=== PATIENT | female | born 1950 | race Caucasian/White ===

== ENCOUNTER 2020-07-01 14:09 | Outpatient (CLI) | payer MEDICARE, OTHER, SELFPAY ==
--- NOTE | 2020-07-01 14:22 | MM_ITS ---
WS: [id number] SCREENING DIGITAL MAMMOGRAM WITH CAD HISTORY: SCREENING COMPARISON: 06/26/2018 and 09/08/2009 Bilateral CC and MLO views submitted. Computer aided detection analyzed. Breast composition: There are scattered areas of fibroglandular density. High density asymmetry posterior to the RIGHT nipple. Asymmetry measures 2.8 x 0.9 cm. Suspect there may be a lobulated mass just lateral to the nipple on the CC view. Additional imaging is warranted. O therwise asymmetries are stable. MM/[place] [id number] IMPRESSION: BI-RADS: 0-Incomplete: Need additional imaging evaluation FOLLOW UP: Need Additional Imaging RIGHT breast: Spot compression views (CC and MLO). True ML. Ultrasound to follo w if abnormality persists.
== END 2020-07-01 14:10 | disposition home or self-care (01) ==
LOC: RADSHAW 14:16
PROVIDERS: PCP Internal Medicine; Visit Provider Internal Medicine
DX: Z12.31 Encounter for screening mammogram for malignant neoplasm of breast (principal); N64.89 Other specified disorders of breast
CPT/HCPCS: 77067

== ENCOUNTER 2020-07-08 09:00 | Outpatient (CLI) | payer MEDICARE, OTHER, SELFPAY ==
--- NOTE | 2020-07-08 10:19 | XR_ITS ---
WS: [id number] ABDOMEN 1 VIEW(S) HISTORY: CONSTIPATION COMPARISON: None available. Moderate increased fecal retention in the RIGHT colon. Otherwise the bowel gas pattern is normal. No mass or calcification. No suspicious calcifications or masses. No bone abnormality. Surgical clips in the pelvis bilaterally. XR/XR KUB [id number] IMPRESSION: Moderate fecal retention RIGHT colon. No obstructive pattern.
== END 2020-07-08 09:01 | disposition home or self-care (01) ==
LOC: RADWPI 09:06
PROVIDERS: PCP Internal Medicine; Visit Provider Internal Medicine
DX: K59.00 Constipation, unspecified (principal)
CPT/HCPCS: 74018

== ENCOUNTER 2020-07-14 12:47 | Outpatient (CLI) | payer MEDICARE, OTHER, SELFPAY ==
--- NOTE | 2020-07-14 12:58 | US_ITS ---
WS: [id number] ADDITIONAL VIEWS RIGHT BREAST RIGHT breast ultrasound, limited HISTORY: RIGHT breast asymmetry. COMPARISON: None available. Compression views right CC and MLO projection. True ML also submitted. Asymmetry measuring 9 mm persists in the anterior RIGHT breast near 9:00. No calcifications. Ultrasou nd to be performed. RIGHT breast ultrasound. Ultrasound is directed posterior to the nipple and to the 9:00 axis. There is an irregular fluid iain ection measuring 1.0 x 0.9 x 0.5 cm in the RIGHT breast 2 cm from the nipple. Corresponds to size and location with the mammographic abnormality. This is probably a small amount of fluid in the duct or cyst conforming to the planes of the breasts. US/US breast RT limited* [id number] IMPRESSION: BI-RADS: 2-Benign FOLLOW-UP: 1 Year Follow-up
== END 2020-07-14 12:48 | disposition home or self-care (01) ==
LOC: RADSHAW 12:50
PROVIDERS: PCP Internal Medicine; Visit Provider Internal Medicine
DX: R92.8 Other abnormal and inconclusive findings on diagnostic imaging of breast (principal); N64.89 Other specified disorders of breast
CPT/HCPCS: 76642; 77065

== ENCOUNTER 2020-07-22 12:26 | Outpatient (CLI) | payer MEDICARE, OTHER, SELFPAY ==
--- NOTE | 2020-07-22 12:31 | CT_ITS ---
WS: [id number] CT ABDOMEN AND PELVIS WITH CONTRAST HISTORY: LEFT LOWER QUADRANT ABDOMINAL PAIN TECHNIQUE: Imaging performed of the abdomen and pelvis with IV contrast. Single phase imaging of the abdomen. Coronal and sagittal reformats are submitted. All CT scans at [facility] use at least one of these dose optimization techniques: automated exposure control; mA and/or kV adjustment per patient size (includes targeted exams where dose is matched to clinical indication); or iterativ e reconstruction. IV CONTRAST: Omnipaque 300; 95 mL IV. Oral contrast: Yes. DLP: 1043.77 mGycm COMPARISON: None available. Lower thorax: Lung bases are clear. Heart is normal size. Moderate-sized hiatal hernia. Liver/biliary system: Mild hepatic steatosis. No mass or bile duct dilatation. Gallbladder: Normal. No gallstones or wall thickening. No pericholecystic fluid. Pancreas: Normal. Spleen: Normal. Adrenal glands: Normal. Right kidney: Normal. Left kidney: Cortical cyst upper pole measures 13 mm. No obstruction. Aorta: Mild atherosclerosis with no aneurysm. Lymphadenopathy: None. Free fluid: None. GI tract: Moderate diffuse constipation. No obstruction. Descending and sigmoid diverticular disease. No evidence for acute diverticulitis. No abscess or free fluid. The appendix is normal. Abdominal wall: Unremarkable abdominal wall. No hernia. Pelvis: Prior hysterectomy. No free fluid or adenopathy in the pelvis. Bones: L5 anterolisthesis by 10 mm. Bilateral pars defects at L5. Severe disc space narrowing at L5-S 1. CT/CT abdomen pelvis w con* [id number] IMPRESSION: 1. Moderate size hiatal hernia. 2. Descending and sigmoid diverticulosis without acute diverticulitis. 3. Diffuse constipation. No obstructive pattern. Normal appendix. 4. No ascites. 5. No RIGHT lower quadrant mass. Majority of the constipation and fecal retent ion is in the RIGHT colon.
[2020-07-22] MEDS: iohexol 300 mg/mL 50 mL Btl PO (13:11)
[2020-07-22] MEDS: iohexol 300 mg/mL 100 mL Btl IV (14:30)
== END 2020-07-22 12:27 | disposition home or self-care (01) ==
LOC: RADWPI 12:30
PROVIDERS: PCP Internal Medicine; Visit Provider Internal Medicine
DX: R10.32 Left lower quadrant pain (principal); K44.9 Diaphragmatic hernia without obstruction or gangrene; K57.30 Diverticulosis of large intestine without perforation or abscess without bleeding; K59.00 Constipation, unspecified
CPT/HCPCS: 74177; Q9967

== ENCOUNTER → 2020-11-08 13:28 | Outpatient (BNVA) | payer MEDICARE, OTHER, SELFPAY | PROVIDERS: PCP Internal Medicine; Visit Provider Specialist | DX: M17.11 Unilateral primary osteoarthritis, right knee (principal); M25.562 Pain in left knee; M25.561 Pain in right knee; Z96.652 Presence of left artificial knee joint | CPT/HCPCS: 73560; 73565 ==

== ENCOUNTER → 2020-11-23 13:48 | Outpatient (BNVA) | payer MEDICARE, OTHER, SELFPAY | PROVIDERS: PCP Internal Medicine; Referring Provider Dermatology; Visit Provider Podiatrist Foot & Ankle Surgery | DX: M19.071 Primary osteoarthritis, right ankle and foot (principal); M79.672 Pain in left foot; M79.671 Pain in right foot | CPT/HCPCS: 73630 ==

== ENCOUNTER 2021-02-22 15:31 | Outpatient (CLI) | payer MEDICARE, OTHER, SELFPAY | END 2021-02-22 15:32 | LOC: SPT 15:32 | PROVIDERS: PCP Internal Medicine; Visit Provider Podiatrist Foot & Ankle Surgery | DX: Z46.89 Encounter for fitting and adjustment of other specified devices (principal); M76.821 Posterior tibial tendinitis, right leg | CPT/HCPCS: 97760; L1902 ==

== ENCOUNTER 2021-04-14 15:02 | Outpatient (CLI) | payer MEDICARE, OTHER, SELFPAY | END 2021-04-14 15:03 | disposition home or self-care (01) | LOC: SPT 15:03 | PROVIDERS: PCP Internal Medicine; Visit Provider Podiatrist Foot & Ankle Surgery | DX: Z46.89 Encounter for fitting and adjustment of other specified devices (principal); M79.673 Pain in unspecified foot; M20.41 Other hammer toe(s) (acquired), right foot; M20.42 Other hammer toe(s) (acquired), left foot; M21.619 Bunion of unspecified foot; M76.821 Posterior tibial tendinitis, right leg | CPT/HCPCS: 97760; L3030 ==

== ENCOUNTER 2021-06-28 06:00 | Outpatient (RCR) | payer MEDICARE, SELFPAY | END 2021-06-28 23:59 | disposition home or self-care (01) | LOC: SPT 06:00 | PROVIDERS: PCP Internal Medicine; Referring Provider Internal Medicine; Visit Provider Internal Medicine | DX: M15.9 Polyosteoarthritis, unspecified (principal) | CPT/HCPCS: 97110; 97161 ==

== ENCOUNTER 2021-06-29 06:00 | Outpatient (RCR) | payer MEDICARE, SELFPAY | END 2021-07-28 23:59 | disposition home or self-care (01) | LOC: SPT 06:00 | PROVIDERS: PCP Internal Medicine; Referring Provider Podiatrist Foot & Ankle Surgery; Visit Provider Podiatrist Foot & Ankle Surgery | DX: M76.821 Posterior tibial tendinitis, right leg (principal) | CPT/HCPCS: 97110; 97112; 97530 ==

== ENCOUNTER 2021-07-29 06:00 | Outpatient (RCR) | payer MEDICARE, SELFPAY | END 2021-08-28 23:59 | disposition home or self-care (01) | LOC: SPT 06:00 | PROVIDERS: PCP Internal Medicine; Visit Provider Podiatrist Foot & Ankle Surgery | DX: M67.971 Unspecified disorder of synovium and tendon, right ankle and foot (principal); Z98.890 Other specified postprocedural states | CPT/HCPCS: 97110; 97112; 97530 ==

== ENCOUNTER → 2021-08-10 13:16 | Outpatient (BNVA) | payer MEDICARE, SELFPAY | PROVIDERS: PCP Internal Medicine; Visit Provider Podiatrist Foot & Ankle Surgery | DX: M79.671 Pain in right foot (principal) | CPT/HCPCS: 73630 ==

== ENCOUNTER 2021-08-29 06:00 | Outpatient (RCR) | payer MEDICARE, SELFPAY | END 2021-09-27 23:59 | disposition home or self-care (01) | LOC: SPT 06:00 | PROVIDERS: PCP Internal Medicine; Visit Provider Podiatrist Foot & Ankle Surgery | DX: M76.821 Posterior tibial tendinitis, right leg (principal) | CPT/HCPCS: 97033; 97110; 97112; 97530 ==

== ENCOUNTER 2021-09-28 06:00 | Outpatient (RCR) | payer MEDICARE, SELFPAY | END 2021-10-28 23:59 | disposition home or self-care (01) | LOC: SPT 06:00 | PROVIDERS: PCP Internal Medicine; Visit Provider Podiatrist Foot & Ankle Surgery | DX: M15.9 Polyosteoarthritis, unspecified (principal) | CPT/HCPCS: 97033; 97110; 97530 ==

== ENCOUNTER 2021-10-29 06:00 | Outpatient (RCR) | payer MEDICARE, SELFPAY | END 2021-11-28 23:59 | disposition home or self-care (01) | LOC: SPT 06:00 | PROVIDERS: PCP Internal Medicine; Visit Provider Podiatrist Foot & Ankle Surgery | DX: M76.821 Posterior tibial tendinitis, right leg (principal) | CPT/HCPCS: 97033; 97110; 97112; 97530 ==

== ENCOUNTER 2021-11-29 06:00 | Outpatient (RCR) | payer MEDICARE, SELFPAY | END 2021-12-26 23:59 | disposition home or self-care (01) | LOC: SPT 06:00 | PROVIDERS: PCP Internal Medicine; Visit Provider Podiatrist Foot & Ankle Surgery | DX: M15.9 Polyosteoarthritis, unspecified (principal) | CPT/HCPCS: 97033; 97110; 97112; 97530 ==

== ENCOUNTER 2021-12-27 06:00 | Outpatient (RCR) | payer MEDICARE, SELFPAY | END 2022-01-26 23:59 | disposition home or self-care (01) | LOC: SPT 06:00 | PROVIDERS: PCP Internal Medicine; Visit Provider Podiatrist Foot & Ankle Surgery | DX: M76.821 Posterior tibial tendinitis, right leg (principal) | CPT/HCPCS: 97033; 97110; 97112; 97530 ==

== ENCOUNTER 2022-01-27 06:00 | Outpatient (RCR) | payer MEDICARE, SELFPAY | END 2022-02-23 17:16 | disposition home or self-care (01) | LOC: SPT 06:00 | PROVIDERS: PCP Internal Medicine; Visit Provider Podiatrist Foot & Ankle Surgery | DX: M15.9 Polyosteoarthritis, unspecified (principal) | CPT/HCPCS: 97110 ==